=== PATIENT | male | born 1965 | race Caucasian/White ===

== ENCOUNTER 2016-11-29 07:44 | Emergency (ER) | payer SELFPAY ==
[2016-11-29] MEDS ORDERED: Fentanyl 100 MCG/2 ML VIAL ONE (08:16)
[2016-11-29 08:20] LABS: #Eosinphils 0.2 thou/uL (0.0-0.7); #Lymphocytes 0.9 thou/uL (1.20-3.40); #Monocytes 0.3 thou/uL (0.11-0.59); #Neutrophils 2.3 thou/uL (1.40-6.50); %Eosinophils 4.5 % (0.0-10.0); %Lymphocytes 24.8 % (21.0-51.0); %Monocytes 8.6 % (0.0-10.0); %Neutrophils 61.2 % (42.0-75.0); Anisocytosis MODERATE=16-30 cells (100X) (0-5/hpf); Hemoglobin 8.7 g/dL (14.0-18.0); Hypochromia MODERATE=16-30 cells (100X) (0-5/hpf); MDiff Complete? YES; Mean Corpuscular Hemoglobin 23.2 pg (27.0-31.0); Mean Corpuscular Volume 77.5 fl (80.0-94.0); Mean Platelet Volume 6.7 fL (7.4-10.4); PLT Morphology Comment Appears Adequate; Platelet Count 135 thou/uL (130-400); RBC Distribution Width 15.9 % (11.5-14.5); Red Blood Cell (RBC) Count 3.75 mill/uL (4.70-6.10); White Blood Cell (WBC) Count 3.7 thou/uL (4.8-10.8)
[2016-11-29] MEDS ORDERED: Ondansetron HCl/PF 4 MG/2 ML Vial ONE (08:20)
[2016-11-29 08:38] LABS: ALT (SGPT) 13 U/L (8-55); AST (SGOT) 16 U/L (5-34); Albumin 3.4 g/dL (3.5-5.0); Alkaline Phosphatase 139 U/L (40-150); Anion Gap 12 mmol/L (10-20); BUN (Urea Nitrogen) 17 mg/dL (8.9-20.6); Bilirubin, Total 0.3 mg/dL (0.2-1.2); Calc. Creatinine Clearance 0 mL/min (70-130); Calcium 8.2 mg/dL (7.8-10.44); Carbon Dioxide 20 mmol/L (22-29); Chloride 109 mmol/L (98-107); Estimated GFR-MDRD 48; Globulin 2.8 g/dL (2.4-3.5); Glucose 118 mg/dL (70-105); Potassium 3.9 mmol/L (3.5-5.1); Protein, Total 6.2 g/dL (6.0-8.3); Sodium 137 mmol/L (136-145)
--- NOTE | 2016-11-29 10:37 | CT ---
CT THORACIC SPINE: Date: 11/29/16 COMPARISON: None. HISTORY: Fall from a ladder, pain. TECHNIQUE: Serial axial CT imaging at 2.5 mm intervals obtained from the cervicothoracic junction through the T 12 level without contrast. Coronal and sagittal reformatted imaging obtained. FINDINGS: Calcified lymph nodes are noted in the subcarinal region, incompletely assessed. Right lower lobe gr anuloma noted. No significant anterolisthesis or retrolisthesis is evident within the thoracic spine. There is mult ilevel thoracic spine anterior osteophyte formation, primarily left-sided in the upper thoracic spin e, and right-sided in the mid/distal thoracic spine. No displaced fracture or evidence of dislocatio n seen. IMPRESSION: No displaced thoracic spine fracture or evidence for dislocation within the thoracic spine. POS: DEB
--- NOTE | 2016-11-29 11:20 | CT ---
LUMBAR SPINE CT WITHOUT CONTRAST: Date: 11/29/16 COMPARISON: None. HISTORY: Fell off a 10-ft ladder, tailbone/back pain. Prior lumbar spine surgery. TECHNIQUE: Serial axial CT imaging at 2.5 mm intervals through the lumbar spine without contrast. Coronal and s agittal reformatted imaging obtained. FINDINGS: Evaluation for central canal and neural foraminal stenosis is limited on routine CT. No significant anterolisthesis or retrolisthesis noted. Multilevel anterior osteophyte formation noted within the l ower thoracic spine. T12-L1: Disc space narrowing and anterior osteophyte formation with no osseous cause of significant central canal or neural foraminal stenosis. L1-2: Probable disc osteophyte complex causes at least mild central canal stenosis. Disc space narrowing, anterior vacuum disc formation, and anterior osteophyte formation noted. No osseous cause of signifi cant neural foraminal stenosis. L2-3: No osseous cause of significant central canal or neural foraminal stenosis. L3-4: Disc bulge and bilateral facet hypertrophy causes at least mild central canal stenosis. Mild bilater al facet hypertrophy with probable mild bilateral neural foraminal stenosis. L4-5: Question prior left-sided hemilaminectomy. Mild bilateral facet hypertrophy. No osseous cause of sig nificant central canal and neural foraminal stenosis. L5-S1: Possible prior right-sided hemilaminectomy. No osseous cause of significant central canal or neural foraminal stenosis. No displaced fracture or evidence of dislocation. IMPRESSION: Multilevel lumbar spine degenerative change. No acute fracture or dislocation seen. POS: DEB
== END 2016-11-29 09:50 | disposition home or self-care (01) ==
LOC: NAV ERS 07:44
DX: S30.0XXA Contusion of lower back and pelvis, initial encounter (principal); D64.9 Anemia, unspecified; I10 Essential (primary) hypertension; E11.9 Type 2 diabetes mellitus without complications; W11.XXXA Fall on and from ladder, initial encounter
CPT/HCPCS: 36415; 72128; 72131; 80053; 85025; 96374; 96375; J1170; J2405; J3010